=== PATIENT | female | born 1990 | race Caucasian/White ===

== ENCOUNTER 2017-03-25 23:29 | Emergency (ER) | payer MEDICAID | END 2017-03-26 01:10 | disposition home or self-care (01) | LOC: D.ER 23:29 | DX: I10 Essential (primary) hypertension (principal); E66.9 Obesity, unspecified; F41.9 Anxiety disorder, unspecified; F31.9 Bipolar disorder, unspecified; K21.9 Gastro-esophageal reflux disease without esophagitis ==

== ENCOUNTER 2017-07-25 18:29 | Emergency (ER) | payer MEDICAID | END 2017-07-25 19:54 | disposition home or self-care (01) | LOC: D.ER 18:29 | DX: S60.466A Insect bite (nonvenomous) of right little finger, initial encounter (principal); W57.XXXA Bitten or stung by nonvenomous insect and other nonvenomous arthropods, initial encounter; Y93.89 Activity, other specified; Y92.89 Other specified places as the place of occurrence of the external cause; L25.9 Unspecified contact dermatitis, unspecified cause; I10 Essential (primary) hypertension; K21.9 Gastro-esophageal reflux disease without esophagitis ==